=== PATIENT | male | born 1965 | race African-American/Black ===

== ENCOUNTER → 2021-03-08 | Day surgery (SDC) | payer OTHER ==
[~2021-03-08] VITALS: Ht 180.3 cm; Wt 131.7 kg
[~2021-03-08] MED LIST: CIALIS5 MG PO; MVI PO; [UNRECOGNIZED DRUG - OTHER] PO
[2021-03-08 08:16] LABS: HCT 42.9 % (42.0-52.0); HGB 13.9 g/dl (13.2-18.0); MCH 28.5 pg (25.0-31.0); MCHC 32.4 g/dL (32.0-36.0); MCV 88.1 fL (78.0-100.0); MPV 9.6 fL (6.0-9.5); RBC 4.87 M/uL (4.70-6.00); RDW 13.5 % (11.5-14.0); WBC 4.9 K/uL (4.0-10.5)
[2021-03-08 08:47] LABS: ALBUMIN 4.1 g/dL (3.4-5.0); BILIRUBIN - TOTAL 0.5 mg/dL (0.2-1.0); BUN/CREAT RATIO (CALC) 16.3 RATIO; CREATININE 0.92 mg/dL (0.67-1.17); GLOBULIN (CALCULATION) 3.9 g/dL; POTASSIUM 4.1 mmol/L (3.5-5.1)
== END | disposition home or self-care (01) ==
LOC: FAS 07:07
PROVIDERS: Surgery
DX: Z12.11 Encounter for screening for malignant neoplasm of colon (principal); K63.5 Polyp of colon; Z86.010 Personal history of colon polyps
CPT/HCPCS: 36415; 80053; J1610; J2704; J7120

== ENCOUNTER 2021-03-28 20:17 | Emergency (ER) | payer OTHER ==
[2021-03-28 21:36] LABS: BASOPHIL 0.2 % (0-2); EOSINOPHIL 0.5 % (0-5); HGB 14.4 g/dl (13.2-18.0); MCH 27.9 pg (25.0-31.0); MCV 87.2 fL (78.0-100.0); MONOCYTE 14.6 % (0-12); MPV 9.7 fL (6.0-9.5); NEUTROPHIL 63.5 % (41-80); NRBC 0; PLT 237 K/uL (150-400); RBC 5.16 M/uL (4.70-6.00); RDW 13.2 % (11.5-14.0)
[2021-03-28 21:38] LABS: WBC 4.4 K/uL (4.0-10.5)
[2021-03-28 21:52] LABS: BUN/CREAT RATIO (CALC) 10.9 RATIO; CREATININE 1.29 mg/dL (0.67-1.17); GLOBULIN (CALCULATION) 4.4 g/dL; POTASSIUM 3.9 mmol/L (3.5-5.1); TOTAL PROTEIN 8.4 g/dL (6.4-8.2)
[2021-03-28] MEDS ORDERED: ONDANSETRON ODT4 MG PO (22:09)
== END 2021-03-28 22:25 | disposition home or self-care (01) ==
LOC: FER 20:17
PROVIDERS: Emergency Medicine
DX: R10.9 Unspecified abdominal pain (principal); Z88.0 Allergy status to penicillin
CPT/HCPCS: 36415; 80053; 83690; 85025; J1885; J2405; J7030